=== PATIENT | female | born 1975 | race American Indian/Alaskan Native ===

== ENCOUNTER 2017-02-06 12:03 | Outpatient (CLI) | payer OTHER ==
--- NOTE | 2017-02-06 15:14 | Cat Scan Report ---
FINAL REPORT PROCEDURE: CT ABDOMEN PELVIS WO CON TECHNIQUE: Computerized axial tomography of the abdomen and pelvis was performed without intravenous contrast. This study is performed without intravascular contrast material and its sensitivity for abdominal and pelvic pathology, including neoplasms, inflammation, abscess, free fluid, thrombosis, arterial dissection and infarction, is reduced compared with a contrast enhanced study. HISTORY: ABDOMINAL PAIN COMPARISON: No prior studies are available for comparison. FINDINGS: Lower Lung [place]: No focal abnormality seen. Upper Abdomen: The liver, the gallbladder adrenal glands pancreas and spleen are unremarkable. Kidneys, Ureters and Urinary bladder: There is no hydronephrosis. There is a low-density nodule with a small thin peripheral calcification in the midportion of the right kidney medially measuring 2.4 centimeters. The kidneys, the ureters and urinary bladder otherwise are unremarkable. There are additional calcifications in the lower pelvis which appear to represent phleboliths. Retroperitoneum: Abdominal aorta appears normal. Nonspecific subcentimeter lymph nodes are seen in the retroperitoneum. No pathologically enlarged lymph nodes are identified. Bowel: There is a moderate to large amount of stool throughout most of the colon. The patient may be constipated. The appendix appears to be surgically absent. No ascites or free intraperitoneal gas is seen. No evidence of bowel obstruction. Reproductive organs: Uterus is surgically absent. No abnormal adnexal masses are seen. Other: No acute bony abnormalities are identified. IMPRESSION: Stool pattern as described. The patient may be constipated. Low-density nodule medial aspect right kidney appears to be cystic. There is however a small peripheral calcification present. This calcification is nonspecific however does make this a complex cyst, I would recommend renal ultrasound for further characterization.
== END 2017-02-06 12:04 | disposition home or self-care (01) ==
LOC: CT 12:03 → SPVIMAG 12:03 → CT 12:04
PROVIDERS: ATTEND Family Medicine Adult Medicine
DX: N28.89 Other specified disorders of kidney and ureter (principal); R10.9 Unspecified abdominal pain; Z90.710 Acquired absence of both cervix and uterus
CPT/HCPCS: 74176

== ENCOUNTER 2017-03-07 12:57 | Outpatient (CLI) | payer OTHER ==
--- NOTE | 2017-03-08 07:25 | Ultrasound Report ---
ULTRASOUND RENAL BILATERAL HISTORY: Right renal cyst. Comparison: CT abdomen pelvis without contrast dated 02/06/17. TECHNIQUE: transabdominal ultrasound with color Doppler interrogation. FINDINGS: The right kidney measures 10.1 x 3.8 x 5.2cm. Right renal cortex: 1.6cm. The left kidney measures 10.6 x 5.2 x 5.3cm. Left renal cortex: 1.2cm. Scans of the kidneys show normal renal contours. There is normal central calyceal clustering and good preservation of the cortical thickness. A 2.5 cm cyst with a focal smooth wall calcification posteriorly is identified in the superior right kidney. There is no evidence of mass or hydronephrosis. The views of the bladder and the region of the ureters appear normal. IMPRESSION: 2.5 cm right renal cyst, Bosniak class II. Otherwise, normal exam.
== END 2017-03-07 12:58 | disposition home or self-care (01) ==
LOC: US 12:57
PROVIDERS: ATTEND Family Medicine Adult Medicine
DX: N28.1 Cyst of kidney, acquired (principal); N28.89 Other specified disorders of kidney and ureter
CPT/HCPCS: 76770

== ENCOUNTER 2017-07-01 07:18 | Day surgery (SDC) | payer OTHER ==
[2017-07-01 09:46] LABS: Basophils % (Auto) 0.6 % (0.0-1.8); Eosinophils % (Auto) 0.8 % (0.0-4.3); Hemoglobin 12.5 gm/dl (10.1-14.3); Lymphocytes # (Auto) 2.6 K/mm3 (1.2-5.4); Mean Corpuscular HGB Conc 34 % (30-34); Mean Corpuscular Hemoglobin 29 pg (28-32); Mean Corpuscular Volume 85 fl (79-97); Monocytes # (Auto) 0.3 K/mm3 (0.0-0.8); Monocytes % (Auto) 6.1 % (0.0-7.3); Platelet Count 250 K/mm3 (140-440); Red Blood Count 4.37 M/mm3 (3.65-5.03)
[2017-07-01 09:57] LABS: INR 0.8 (0.87-1.13)
[2017-07-01 09:58] LABS: Partial Thromboplastin Time 28.4 Sec. (24.2-36.6)
[2017-07-01 10:00] LABS: BUN/Creatinine Ratio 22; Blood Urea Nitrogen 13 mg/dL (7-17); Calcium 9.7 mg/dL (8.4-10.2); Hemolysis Index 113
--- NOTE | 2017-07-01 12:26 | Short Stay Summary ---
Short Stay Documentation Date of service: 07/01/17 - History Principal diagnosis: multiple sclerosis, AML Past Medical History: other (acute myelogenous leukemia) - Allergies and Medications Current Medications: Allergies No Known Allergies Allergy (Verified 07/01/17 08:40) Home Medications Medication Instructions Recorded Confirmed Last Taken Type Dexlansoprazole [Dexilant] 30 mg PO DAILY 07/01/17 07/01/17 06/30/17 History 30mr Linaclotide [Linzess] 145 mcg PO Q48H 07/01/17 07/01/17 06/29/17 History 145mcg Losartan [Cozaar] 25 mg PO DAILY 07/01/17 07/01/17 06/30/17 History 25mg Ondansetron [Zofran TAB] 8 mg PO PRN PRN 07/01/17 07/01/17 06/30/17 History 8mg Prednisone [predniSONE ([place]) ER 10 mg PO DAILY 07/01/17 07/01/17 06/30/17 History TAB] 10mg - Physical exam General appearance: no acute distress Lungs: Clear to auscultation Heart: Regular rate Neurological: Normal speech - Brief post op/procedure progress note Date of procedure: 07/01/17 Pre-op diagnosis: multiple sclerosis Post-op diagnosis: same Procedure: flouro guided lumbar puncture Anesthesia: local Surgeon: HI GARCIA Estimated blood loss: none Pathology: list (4 tubes of CSF, 8cc total) Specimen disposition: to lab Condition: stable - Hospital course Hospital course: uneventful - Disposition Condition at discharge: Good Disposition: DC-01 TO HOME OR SELFCARE Short Stay Discharge Plan Follow up with: LASHA VILLALPANDO MD [Primary Care Provider] - 7 Days
--- NOTE | 2017-07-01 12:50 | Fluoroscopy Report ---
FLUOROSCOPY LUMBAR PUNCTURE HISTORY: Multiple sclerosis. DESCRIPTION OF PROCEDURE: Informed consent was obtained. Sterile technique was utilized. 1% lidocaine for skin anesthesia. One fluoroscopic image was obtained. Using fluoroscopy guidance, lumbar puncture was performed at the L2-3 level. There was spontaneous return of clear CSF. The opening pressure was within normal limits measuring 10 cm of water. A total of 8 cc of CSF fluid was collected in 4 tubes which were sent to laboratory for analysis. No complications. IMPRESSION: Successful fluoroscopy-guided lumbar puncture at L2-3.
[2017-07-01 13:35] VITALS: BP 114/72
[2017-07-01 13:44] LABS: Glucose,CSF 57 mg/dL
[2017-07-01 13:55] LABS: Appearance,CSF Clear
[2017-07-01 14:32] LABS: Red Blood Cell,CSF 1 /mm3 (0-0); White Blood Cell,CSF 1 /mm3 (1-10)
[2017-07-01 14:36] LABS: Total Cells Counted 8 /mm3
--- NOTE | 2017-07-01 14:36 | Magnetic Resonance Report ---
MR CERVICAL SPINE WITH AND WITHOUT CONTRAST HISTORY: Multiple sclerosis, acute myelogenous leukemia. TECHNIQUE: Axial T1 and T2. Sagittal T1, T2 and STIR. Post contrast T1 fat sat and axial and sagittal planes. COMPARISON: No relevant comparison at this facility. FINDINGS: Multiplanar and multisequence MRI of the cervical spine is submitted. Visualized intervertebral discs demonstrate no significant posterior bulge, protrusion, or herniation. Visualized vertebral body and intervertebral discs are of normal height and signal. Neural foramen are patent. Visualized portions of the spinal cord are symmetric without signal abnormality. No abnormal enhancement is identified following IV gadolinium. IMPRESSION: Unremarkable MRI of the cervical spine with and without contrast.
== END 2017-07-01 14:20 | disposition home or self-care (01) ==
LOC: CATHLABREC 07:18 → EDSTATUS 07:45 → CATHLABREC 14:20
PROVIDERS: ATTEND Specialist
DX: G35 Multiple sclerosis (principal); Z79.01 Long term (current) use of anticoagulants; Z79.899 Other long term (current) drug therapy
CPT/HCPCS: 36415; 62270; 72156; 77003; 80048; 82947; 84160; 85025; 85610; 85730; 86403; 86592; 87102; 87116; 88112; 89051; A9577

== ENCOUNTER 2017-07-04 17:28 | Emergency (ER) | payer OTHER ==
[2017-07-04] MEDS ORDERED: ZOFRAN IV ONE (21:12)
[2017-07-04] MEDS ORDERED: SUBLIMAZE IV ONE ×2 (21:12→22:00)
[2017-07-04] MEDS ORDERED: NACL 0.9% 1000 ML 1,000 ML IV ONE (21:12)
--- NOTE | 2017-07-04 22:13 | Emergency Department Report ---
ED Headache HPI - General Chief Complaint: Headache Stated Complaint: HEADACHE Time Seen by Provider: 07/04/17 21:07 Source: patient Exam Limitations: no limitations - History of Present Illness Initial Comments: Patient is 41 years old female with suspected history of multiple sclerosis. She presented to the ER complaining of headache that is started since yesterday after patient had a diagnostic lumbar puncture. Patient denied any history of fever, nausea or vomiting. She stated that her headache is worse when she moves her head. Patient denied any numbness or tingling sensation, no weakness , bowel or bladder incontinence. Allergies/Adverse Reactions: Allergies No Known Allergies Allergy (Verified 07/01/17 08:40) Home Medications: Ambulatory Orders Dexlansoprazole [Dexilant] 30 mg PO DAILY 07/01/17 Linaclotide [Linzess] 145 mcg PO Q48H 07/01/17 Losartan [Cozaar] 25 mg PO DAILY 07/01/17 Ondansetron [Zofran TAB] 8 mg PO PRN PRN 07/01/17 Prednisone [predniSONE ([place]) ER TAB] 10 mg PO DAILY 07/01/17 ED Review of Systems ROS: Stated complaint: HEADACHE Other details as noted in HPI Comment: All other systems reviewed and negative Constitutional: denies: chills, fever Respiratory: denies: cough, orthopnea, shortness of breath, SOB with exertion, SOB at rest, wheezing Cardiovascular: denies: chest pain, palpitations, dyspnea on exertion Gastrointestinal: denies: abdominal pain, nausea, vomiting Genitourinary: denies: urgency, dysuria, frequency, hematuria Skin: denies: rash, lesions Neurological: headache. denies: weakness, numbness, paresthesias, confusion, abnormal gait, vertigo ED Past Medical Hx - Past Medical History Hx Hypertension: Yes Hx GERD: Yes Hx Arthritis: Yes Hx Headaches / Migraines: Yes Hx Seizures: Yes (Mild) Hx Asthma: Yes - Surgical History Hx Appendectomy: Yes - Social History Smoking Status: Never Smoker Substance Use Type: None - Medications Home Medications: Home Medications Medication Instructions Recorded Confirmed Last Taken Type Dexlansoprazole [Dexilant] 30 mg PO DAILY 07/01/17 07/01/17 06/30/17 History 30mr Linaclotide [Linzess] 145 mcg PO Q48H 07/01/17 07/01/17 06/29/17 History 145mcg Losartan [Cozaar] 25 mg PO DAILY 07/01/17 07/01/17 06/30/17 History 25mg Ondansetron [Zofran TAB] 8 mg PO PRN PRN 07/01/17 07/01/17 06/30/17 History 8mg Prednisone [predniSONE ([place]) ER 10 mg PO DAILY 07/01/17 07/01/17 06/30/17 History TAB] 10mg ED Physical Exam - General Limitations: No Limitations General appearance: alert, in no apparent distress - Head Head exam: Present: atraumatic, normocephalic, normal inspection - Eye Eye exam: Present: normal appearance, PERRL Pupils: Present: normal accommodation - ENT ENT exam: Present: normal exam, normal orophraynx, mucous membranes moist - Neck Neck exam: Present: normal inspection, full ROM. Absent: tenderness, meningismus, lymphadenopathy, thyromegaly - Respiratory Respiratory exam: Present: normal lung sounds bilaterally. Absent: respiratory distress, wheezes, rales, rhonchi, stridor, chest wall tenderness, accessory muscle use, decreased breath sounds, prolonged expiratory - Cardiovascular Cardiovascular Exam: Present: regular rate, normal rhythm, normal heart sounds - GI/Abdominal GI/Abdominal exam: Present: soft, normal bowel sounds. Absent: distended, tenderness, guarding, rebound, rigid, organomegaly, mass, bruit, pulsatile mass , hernia - Extremities Exam Extremities exam: Present: normal inspection, full ROM, normal capillary refill - Back Exam Back exam: Present: normal inspection, full ROM. Absent: tenderness, CVA tenderness (R), CVA tenderness (L), muscle spasm, paraspinal tenderness, vertebral tenderness, rash noted - Neurological Exam Neurological exam: Present: alert, oriented X3, CN II-XII intact, normal gait, reflexes normal - Skin Skin exam: Present: warm, intact, normal color ED Course Vital Signs 07/04/17 07/04/17 07/04/17 17:41 21:28 21:30 Temperature 98.2 F Pulse Rate 119 H 106 H 102 H Respiratory 18 15 17 Rate Blood Pressure 136/92 O2 Sat by Pulse 100 98 100 Oximetry 07/04/17 07/04/17 07/04/17 21:46 21:51 22:00 Temperature Pulse Rate 108 H 104 H Respiratory 17 20 20 Rate Blood Pressure 148/94 150/88 O2 Sat by Pulse 97 99 98 Oximetry 07/04/17 07/04/17 07/04/17 22:16 22:18 22:30 Temperature Pulse Rate 95 H 91 H 95 H Respiratory 16 16 15 Rate Blood Pressure 150/88 150/88 125/77 O2 Sat by Pulse 98 98 99 Oximetry 07/04/17 07/04/17 07/04/17 22:46 23:00 23:16 Temperature Pulse Rate 97 H 93 H 94 H Respiratory 21 18 20 Rate Blood Pressure 125/77 123/72 123/72 O2 Sat by Pulse 99 99 Oximetry 07/04/17 07/04/17 07/05/17 23:30 23:46 00:00 Temperature Pulse Rate 88 91 H 84 Respiratory 12 13 17 Rate Blood Pressure 130/75 130/75 119/73 O2 Sat by Pulse 99 98 100 Oximetry 07/05/17 07/05/17 07/05/17 00:16 00:30 00:46 Temperature Pulse Rate 81 85 88 Respiratory 11 L 14 11 L Rate Blood Pressure 119/73 127/82 127/82 O2 Sat by Pulse 98 99 Oximetry 07/05/17 07/05/17 01:00 01:16 Temperature Pulse Rate 88 80 Respiratory 17 17 Rate Blood Pressure 119/74 119/74 O2 Sat by Pulse 99 97 Oximetry - Reevaluation(s) Reevaluation #1: 07/05/17 01:39 Patient stated that she feels much better. I advised her to return to the ER for blood patching if symptoms return. ED Medical Decision Making - Lab Data Result diagrams: 07/04/17 21:52 07/04/17 21:52 Critical care attestation.: If time is entered above; I have spent that time in minutes in the direct care of this critically ill patient, excluding procedure time. ED Disposition Clinical Impression: Headache after spinal puncture Disposition: DC-01 TO HOME OR SELFCARE Is pt being admited?: No Condition: Stable Instructions: Lumbar Puncture (ED), Acute Headache (ED) Referrals: PRIMARY CARE,MD [Primary Care Provider] - 3-5 Days
[2017-07-04 22:15] LABS: Basophils % (Auto) 0.3 % (0.0-1.8); Eosinophils % (Auto) 0.7 % (0.0-4.3); Hematocrit 34.5 % (30.3-42.9); Hemoglobin 11.8 gm/dl (10.1-14.3); Lymphocytes # (Auto) 2.2 K/mm3 (1.2-5.4); Lymphocytes % (Auto) 31.2 % (13.4-35.0); Mean Corpuscular HGB Conc 34 % (30-34); Mean Corpuscular Hemoglobin 29 pg (28-32); Mean Corpuscular Volume 84 fl (79-97); Monocytes # (Auto) 0.5 K/mm3 (0.0-0.8); Monocytes % (Auto) 6.9 % (0.0-7.3); Platelet Count 253 K/mm3 (140-440); Red Blood Count 4.09 M/mm3 (3.65-5.03)
[2017-07-04 22:25] LABS: Alanine Aminotransferase 24 units/L (7-56); Albumin 4.1 g/dL (3.9-5); BUN/Creatinine Ratio 19; Blood Urea Nitrogen 13 mg/dL (7-17); Hemolysis Index 10
[2017-07-05] MEDS ORDERED: NACL 0.9% 1000 ML 1,000 ML ONE (00:25)
[2017-07-05] MEDS ORDERED: SUBLIMAZE IV ONE (01:41)
[2017-07-05] MEDS ORDERED: SUBLIMAZE ONE (01:47)
[2017-07-05] MEDS ORDERED: ZOFRAN ONE (02:39)
[2017-07-05 03:19] VITALS: BP 124/85
== END 2017-07-05 03:19 | disposition home or self-care (01) ==
LOC: ED 17:28
DX: G97.1 Other reaction to spinal and lumbar puncture (principal); I10 Essential (primary) hypertension; K21.9 Gastro-esophageal reflux disease without esophagitis; J45.909 Unspecified asthma, uncomplicated
CPT/HCPCS: 36415; 80053; 85025; 96361; 96374; 96375; 96376; 99283; J2405; J3010; J7030

== ENCOUNTER 2018-08-08 09:50 | Outpatient (CLI) | payer OTHER | END 2018-08-08 09:51 | disposition home or self-care (01) | LOC: LAB 09:50 | PROVIDERS: ATTEND Internal Medicine | DX: Z02.71 Encounter for disability determination (principal); F41.9 Anxiety disorder, unspecified; F32.9 Major depressive disorder, single episode, unspecified; I10 Essential (primary) hypertension; J45.909 Unspecified asthma, uncomplicated; K21.9 Gastro-esophageal reflux disease without esophagitis; Z90.710 Acquired absence of both cervix and uterus | CPT/HCPCS: 36415; 86618 ==